=== PATIENT | female | born 1970 | race African-American/Black ===

== ENCOUNTER 2016-08-02 04:14 | Emergency (ER) | payer OTHER ==
[~2016-08-02] VITALS: Ht 160 cm; Wt 77.1 kg
[2016-08-02] MEDS ORDERED: NKM (04:25)
[2016-08-02 04:30] VITALS: BP 114/70
--- NOTE | 2016-08-02 04:30 | Emergency Room Report ---
History of Present Illness General Chief Complaint: Abdominal Pain Source: Patient Present Illness HPI 46 YO F with 2-3 days of vomiting, diarrhea and abd pain. Lap band surgery in 2010. Denies urinary complaints. Denies sick contacts, foreign travel. Not taking any OTC meds at home. Allergies: Coded Allergies: ACETAMINOPHEN (Verified Allergy, Unknown, 08/02/16) HYDROCODONE (Verified Allergy, Unknown, 08/02/16) IBUPROFEN (Verified Allergy, Unknown, 08/02/16) Uncoded Allergies: ARITHROMYACIN (Allergy, Unknown, 08/02/16) Patient History Past Surgical History: other - lab band surgery Pertinent Family History: none Social History: Denies: alcohol use, drug use, smoking Last Menstrual Period: 07/10/16 Now: No : 2 Para: 1 Reviewed Nursing Documentation: PMH: Agreed, PSxH: Agreed Review of Systems All Other Systems: negative except mentioned in HPI Physical Exam Vital Signs Date Time Temp Pulse Resp B/P Pulse Ox O2 Delivery O2 Flow Rate FiO2 08/02/16 04:20 97.9 84 14 147/88 100 Sp02 EP Interpretation: reviewed, normal General Appearance: normal inspection, well appearing, no apparent distress, alert Head: atraumatic ENT: normal ENT inspection, hearing grossly normal, normal voice Neck: normal inspection, full range of motion, supple, no bony tend Respiratory: normal inspection, lungs clear, normal breath sounds, no respiratory distress, no retraction, no wheezing Cardiovascular #1: regular rate, rhythm, no edema Gastrointestinal: normal inspection, normal bowel sounds, non tender, soft, no guarding, no hernia Genitourinary: no CVA tenderness Musculoskeletal: normal inspection, back normal, normal range of motion, Nanci' s Sign negative Neurologic: normal inspection, alert, responsive, speech normal Psychiatric: normal inspection, judgement/insight normal, mood/affect normal Skin: normal inspection, normal color, no rash Medical Decision Making ER Course 46 YOf with symptoms c/w viral gastroenteritis. VSS. Afebrile. Nonfocal abd on serial exam. UA negative for infection. Multiple epithelial cells, like contaminant. No nitrites. Patient not , had "tubes tied" before. PO tx with zofran/bentyl/pepcid. Tolerating PO in ED Low suspicion for acute bacterial or surgical process Rx with meds for symptomatic relief PMD followup DC home Last Vital Signs Date Time Temp Pulse Resp B/P Pulse Ox O2 Delivery O2 Flow Rate FiO2 08/02/16 04:20 97.9 84 14 147/88 100 Status: improved Disposition: HOME, SELF-CARE Scripts Famotidine (PEPCID) 20 Mg Tablet 20 MG ORAL BID, #30 TAB 0 Refills Prov: KOKO BRADY M.D. 08/02/16 Ondansetron Odt* (ZOFRAN ODT*) 4 Mg Tab.rapdis 4 MG ORAL Q6H Y for Nausea & Vomiting, #30 TAB 0 Refills Prov: KOKO BRADY M.D. 08/02/16 Dicyclomine Hcl* (BENTYL*) 10 Mg Capsule 10 MG ORAL FOUR TIMES A DAY for 10 Days, #40 CAP Prov: KOKO BRADY M.D. 08/02/16 KOKO BRADY M.D. Aug 02, 2016 04:30
[2016-08-02] MEDS ORDERED: BENTYL10 MG ORAL (04:37)
[2016-08-02] MEDS ORDERED: ZOFRAN ODT4 MG ORAL (04:37)
[2016-08-02] MEDS ORDERED: PEPCID20 MG ORAL (04:37)
[2016-08-02 04:39] LABS: APPEARANCE,URINE CLEAR; KETONES,URINE 1+ (NEGATIVE); LEUKOCYTE ESTERASE ,URINE 2+ (NEGATIVE); NITRITE,URINE NEGATIVE (NEGATIVE); PH,URINE 6.5 (4.5-8.0); PROTEIN,URINE 1+ (NEGATIVE); UROBILINOGEN,URINE NORMAL MG/DL (0.0-1.0)
[2016-08-02] MEDS ORDERED: Dicyclomine HCl 10mg/5ml oral soln ORAL ONE (04:45)
[2016-08-02 05:14] LABS: BACTERIA,URINE FEW /HPF; SQUAMOUS EPITHELIAL CELL,UR MANY /LPF (NONE/OCC)
[2016-08-02 05:39] VITALS: BP 120/73
== END 2016-08-02 05:39 | disposition home or self-care (01) ==
LOC: EMR 04:24
DX: A08.4 Viral intestinal infection, unspecified (principal); R10.9 Unspecified abdominal pain; R11.10 Vomiting, unspecified; R19.7 Diarrhea, unspecified; Z98.84 Bariatric surgery status; Z88.6 Allergy status to analgesic agent; Z88.5 Allergy status to narcotic agent
CPT/HCPCS: 81003; 81025; 99284

== ENCOUNTER 2016-08-02 08:04 | Inpatient (IN) | payer OTHER ==
[2016-08-02] VITALS (9 sets, daily range): BP systolic 121–135; BP diastolic 75–86
[~2016-08-02] VITALS: Ht 160 cm; Wt 77.1 kg
[2016-08-02] MEDS: Ketorolac 30mg Inj IV SCH ×4 (02:30→20:30)
[~2016-08-02 08:04] MED LIST: BENTYL10 MG ORAL; NKM; PEPCID20 MG ORAL; ZOFRAN ODT4 MG ORAL
--- NOTE | 2016-08-02 09:27 | Emergency Room Report ---
History of Present Illness General Chief Complaint: Abdominal Pain Source: Patient Present Illness HPI This patient presents with nausea, vomiting and abdominal pain. The patient states that her symptoms started 3 days ago. She states that she feels like something is wrong in her abdomen. She states that she underwent a lap band procedure 5-6 years ago. She is unsure if it was 2009 or 2010. She was seen here early this morning and diagnosed with gastroenteritis. She states that this does not seem like a gastroenteritis. She feels something is wrong in her abdomen. She has diffuse abdominal pain and cramping. She has been able to take oral fluids. She has not been able to eat any solids. She denies fever or chills. She denies bodyaches. She denies dysuria or hematuria. She has no other complaints. Allergies: Coded Allergies: ACETAMINOPHEN (Verified Allergy, Unknown, 08/02/16) HYDROCODONE (Verified Allergy, Unknown, 08/02/16) IBUPROFEN (Verified Allergy, Unknown, 08/02/16) Uncoded Allergies: ARITHROMYACIN (Allergy, Unknown, 08/02/16) Patient History Past Medical History: none, see triage record Past Surgical History: other - Gastric bypass/lap band 2010 Social History: Denies: alcohol use, drug use, smoking Last Menstrual Period: 07/10/2016 Reviewed Nursing Documentation: PMH: Agreed, PSxH: Agreed Nursing Documentation-PMH Past Medical History: No History, Except For Review of Systems All Other Systems: negative except mentioned in HPI Physical Exam Vital Signs Date Time Temp Pulse Resp B/P Pulse Ox O2 Delivery O2 Flow Rate FiO2 08/02/16 08:12 97.9 99 14 144/77 98 Room Air Sp02 EP Interpretation: reviewed, normal General Appearance: no apparent distress, alert, GCS 15, non-toxic Head: normocephalic, atraumatic Eyes: bilateral eye PERRL, bilateral eye normal inspection ENT: hearing grossly normal, normal pharynx, no angioedema, normal voice Neck: full range of motion, supple/symm/no masses Respiratory: chest non-tender, lungs clear, normal breath sounds, speaking full sentences Cardiovascular #1: regular rate, rhythm, no edema Gastrointestinal: normal bowel sounds, soft, non-distended, no guarding, no rebound, tenderness - diffusely Rectal: deferred Musculoskeletal: back normal, gait/station normal, normal range of motion, non- tender Neurologic: alert, oriented x3, responsive, motor strength/tone normal, sensory intact, speech normal Psychiatric: judgement/insight normal, memory normal, mood/affect normal, no suicidal/homicidal ideation Skin: normal color, no rash, warm/dry, well hydrated Medical Decision Making Diagnostic Impression: Primary Impression: LAP-BAND Displacement ER Course This patient presents with her second visit within 12 hours for the same symptoms. She is concerned about her lap band surgery. Abdominal exam is diffusely tender. She is high-risk for complications related to a previous lap band. She is very concerned that her symptoms feel different than a gastroenteritis. Therefore, I felt I should investigate it further with labs to include a CBC and CMP. I also felt I should obtain a CT abdomen and pelvis to further assess her surgical site. This workup showed some inflammatory changes around the lap band. Further discussion with the patient's manager strategy & account/surgeon determine that this patient was found to have a slipped lap band about 10 months ago. There was plans to remove the lap band at that time, however, do to circumstances the lap was not removed. The patient does continue to have vomiting and is unable to tolerate solid food. Laboratory workup is benign. The patient is admitted for lap band removal by gastroenterology. Labs Test 08/02/16 09:10 08/02/16 10:20 White Blood Count 6.7 K/UL (4.8-10.8) Red Blood Count 4.20 M/UL (4.20-5.40) Hemoglobin 12.1 G/DL (12.0-16.0) Hematocrit 38.6 % (37.0-47.0) Mean Corpuscular Volume 92 FL (80-99) Mean Corpuscular Hemoglobin 28.7 PG (27.0-31.0) Mean Corpuscular Hemoglobin Concent 31.2 G/DL (32.0-36.0) Red Cell Distribution Width 14.2 % (11.6-14.8) Platelet Count 298 K/UL (150-450) Mean Platelet Volume 6.0 FL (6.5-10.1) Neutrophils (%) (Auto) 61.6 % (45.0-75.0) Lymphocytes (%) (Auto) 30.9 % (20.0-45.0) Monocytes (%) (Auto) 5.6 % (1.0-10.0) Eosinophils (%) (Auto) 0.5 % (0.0-3.0) Basophils (%) (Auto) 1.4 % (0.0-2.0) Sodium Level 137 mEQ/L (135-145) Potassium Level 4.1 mEQ/L (3.4-4.9) Chloride Level 102 mEQ/L (98-107) Carbon Dioxide Level 22 mEQ/L (20-30) Anion Gap 13 (5-15) Blood Urea Nitrogen 10 mg/dL (7-23) Creatinine 0.7 mg/dL (0.5-0.9) Estimat Glomerular Filtration Rate > 60 mL/min (>60) Glucose Level 99 mg/dL (74-106) Calcium Level 8.9 mg/dL (8.6-10.2) Total Bilirubin 0.5 mg/dL (0.0-1.2) Aspartate Amino Transf (AST/SGOT) 16 U/L (5-40) Alanine Aminotransferase (ALT/SGPT) 9 U/L (3-33) Alkaline Phosphatase 46 U/L (35-104) Total Protein 7.4 g/dL (6.6-8.7) Albumin 3.9 g/dL (3.5-5.2) Globulin 3.5 g/dL Albumin/Globulin Ratio 1.1 (1.0-2.7) Lipase 15 U/L (< 60) Urine Color Pale yellow Urine Appearance Clear Urine pH 8 (4.5-8.0) Urine Specific [place] 1.010 (1.005-1.035) Urine Protein Negative (NEGATIVE) Urine Glucose (UA) Negative (NEGATIVE) Urine Ketones 2+ (NEGATIVE) Urine Occult Blood Negative (NEGATIVE) Urine Nitrite Negative (NEGATIVE) Urine Bilirubin Negative (NEGATIVE) Urine Urobilinogen Normal MG/DL (0.0-1.0) Urine Leukocyte Esterase Negative (NEGATIVE) Urine HCG, Qualitative Negative CT/MRI/US Diagnostic Results CT/MRI/US Diagnostic Results : Imaging Test Ordered: CT abd/pelvis Impression See official report. Mild mural thickening of panel hernia above and proximal stomach encircled by the lap band. Last Vital Signs Date Time Temp Pulse Resp B/P Pulse Ox O2 Delivery O2 Flow Rate FiO2 08/02/16 09:11 97.9 90 14 130/85 98 Room Air Disposition: ADMITTED INPATIENT Condition: Stable Referrals: NON PHYSICIAN (PCP) MARLIN CANTU D.O. Aug 02, 2016 09:27
[2016-08-02 09:30] LABS: BASOPHILS % (AUTO) 1.4 % (0.0-2.0); EOSINOPHILS % (AUTO) 0.5 % (0.0-3.0); LYMPHOCYTES % (AUTO) 30.9 % (20.0-45.0); MEAN CORPUSCULAR HEMOGLOBIN 28.7 PG (27.0-31.0); MEAN CORPUSCULAR HGB CONC 31.2 G/DL (32.0-36.0); MEAN CORPUSCULAR VOLUME 92 FL (80-99); MONOCYTES % (AUTO) 5.6 % (1.0-10.0); NEUTROPHILS % (AUTO) 61.6 % (45.0-75.0); PLATELET COUNT 298 K/UL (150-450); RED CELL DISTRIBUTION WIDTH 14.2 % (11.6-14.8); WHITE BLOOD COUNT 6.7 K/UL (4.8-10.8)
[2016-08-02 09:43] LABS: ALANINE AMINOTRANSFERASE 9 U/L (3-33); ALBUMIN/GLOBULIN RATIO 1.1 (1.0-2.7); ANION GAP 13 (5-15); ASPARTATE AMINO TRANSFERASE 16 U/L (5-40); CALCIUM 8.9 mg/dL (8.6-10.2); CARBON DIOXIDE 22 mEQ/L (20-30); CHLORIDE 102 mEQ/L (98-107); CREATININE 0.7 mg/dL (0.5-0.9); GLOMERULAR FILTRATION RATE > 60 mL/min (>60); HEMOLYSIS 15; LIPASE 15 U/L (< 60); POTASSIUM 4.1 mEQ/L (3.4-4.9); SODIUM 137 mEQ/L (135-145); TOTAL PROTEIN 7.4 g/dL (6.6-8.7)
[2016-08-02 10:38] LABS: APPEARANCE,URINE CLEAR; KETONES,URINE 2+ (NEGATIVE); LEUKOCYTE ESTERASE ,URINE NEGATIVE (NEGATIVE); NITRITE,URINE NEGATIVE (NEGATIVE); PH,URINE 8 (4.5-8.0); PROTEIN,URINE NEGATIVE (NEGATIVE); UROBILINOGEN,URINE NORMAL MG/DL (0.0-1.0)
[2016-08-02] MEDS ORDERED: Ropivacaine 5mg/ml Vial 20ml INJ ONE (14:23)
[2016-08-02] MEDS ORDERED: cefOXitin 1gm Inj ONE (14:24)
[2016-08-02] MEDS ORDERED: cefOXitin 2gm Inj ONE (14:24)
[2016-08-02] MEDS ORDERED: Propofol 10mg/ml 20ml IV ONE ×2 (14:25→14:59)
[2016-08-02] MEDS ORDERED: Midazolam 2mg/2ml Inj ONE (14:59)
[2016-08-02] MEDS ORDERED: fentaNYL 100 mcg/2 mL IV ONE (14:59)
[2016-08-02] MEDS ORDERED: Morphine Sulfate 2mg/ml Inj ONE (14:59)
[2016-08-02] MEDS ORDERED: Glycopyrrolate 0.2mg/ml 1ml Vial ONE (14:59)
[2016-08-02] MEDS ORDERED: Succinylcholine 20mg/ml 10ml vial ONE (14:59)
[2016-08-02] MEDS ORDERED: Morphine Sulfate 10mg/ml Inj ONE (14:59)
[2016-08-02] MEDS ORDERED: Neostigmine 1mg/ml 10ml Inj ONE (14:59)
[2016-08-02] MEDS ORDERED: Zemuron 50mg/5ml Inj IV ONE (14:59)
--- NOTE | 2016-08-02 15:48 | Anethesia Preoperative Eval ---
Anesthesia Pre-op PMH/ROS General Date of Evaluation: Aug 02, 2016 Time of Evaluation: 15:43 Anesthesiologist: Isaura ASA Score: ASA 2 Mallampati Score Class I : Soft palate, uvula, fauces, pillars visible Class II: Soft palate, uvula, fauces visible Class III: Soft palate, base of uvula visible Class IV: Only hard plate visible Mallampati Classification: Class II Surgeon: Rajwinder Diagnosis: Displaced lapband. Surgical Procedure: Laparoscopic removal of lapband, partial gastrectomy. Anesthesia History: PONV Family History: no anesthesia problems Allergies: Coded Allergies: ACETAMINOPHEN (Verified Allergy, Unknown, 08/02/16) HYDROCODONE (Verified Allergy, Unknown, 08/02/16) IBUPROFEN (Verified Allergy, Unknown, 08/02/16) Uncoded Allergies: ARITHROMYACIN (Allergy, Unknown, 08/02/16) Past Medical History Cardiovascular: Denies: CAD, HTN, [place], arrhythmia, other, valve dz Pulmonary: Denies: COPD, JULIANE, asthma, other Gastrointestinal/Genitourinary: Reports: GERD, Denies: CRI, ESRD, other Neurologic/Psychiatric: Reports: depression/anxiety, Denies: CVA, TIA, dementia, other Endocrine: Denies: DM, hypothyroidism, other, steroids HEENT: Denies: NOATAK (L), NOATAK (R), cataract (L), cataract (R), glaucoma, other Hematology/Immune: Denies: DVT, anemia, bleeding disorder, other Musculoskeletal/Integumentary: Reports: DJD, Denies: DDD, OA, RA, edema, other Other: obesity - s/p lapband placement PMH Narrative: admitted for acute abdominal pain. N&V. PSxH Narrative: BTL, Lapband placement, R TKA Anesthesia Pre-op Phys. Exam Physician Exam Last Vital Signs Date Time Temp Pulse Resp B/P Pulse Ox O2 Delivery O2 Flow Rate FiO2 08/02/16 15:33 97.9 88 14 135/86 97 Room Air Constitutional: NAD Neurologic: CN 2-12 intact Cardiovascular: RRR, no M/R/G Respiratory: CTA Gastrointestinal: S/NT/ND Airway Exam Mallampati Score: Class II MO: full Neck: flexible ROM: full Teeth: intact Dentures: no lower, no upper Anesthesia Pre-op A/P Labs Hematology Test 08/02/16 09:10 White Blood Count 6.7 K/UL (4.8-10.8) Red Blood Count 4.20 M/UL (4.20-5.40) Hemoglobin 12.1 G/DL (12.0-16.0) Hematocrit 38.6 % (37.0-47.0) Mean Corpuscular Volume 92 FL (80-99) Mean Corpuscular Hemoglobin 28.7 PG (27.0-31.0) Mean Corpuscular Hemoglobin Concent 31.2 G/DL (32.0-36.0) L Red Cell Distribution Width 14.2 % (11.6-14.8) Platelet Count 298 K/UL (150-450) Mean Platelet Volume 6.0 FL (6.5-10.1) L Neutrophils (%) (Auto) 61.6 % (45.0-75.0) Lymphocytes (%) (Auto) 30.9 % (20.0-45.0) Monocytes (%) (Auto) 5.6 % (1.0-10.0) Eosinophils (%) (Auto) 0.5 % (0.0-3.0) Basophils (%) (Auto) 1.4 % (0.0-2.0) Chemistry Test 08/02/16 09:10 Sodium Level 137 mEQ/L (135-145) Potassium Level 4.1 mEQ/L (3.4-4.9) Chloride Level 102 mEQ/L (98-107) Carbon Dioxide Level 22 mEQ/L (20-30) Anion Gap 13 (5-15) Blood Urea Nitrogen 10 mg/dL (7-23) Creatinine 0.7 mg/dL (0.5-0.9) Estimat Glomerular Filtration Rate > 60 mL/min (>60) Glucose Level 99 mg/dL (74-106) Calcium Level 8.9 mg/dL (8.6-10.2) Total Bilirubin 0.5 mg/dL (0.0-1.2) Aspartate Amino Transf (AST/SGOT) 16 U/L (5-40) Alanine Aminotransferase (ALT/SGPT) 9 U/L (3-33) Alkaline Phosphatase 46 U/L (35-104) Total Protein 7.4 g/dL (6.6-8.7) Albumin 3.9 g/dL (3.5-5.2) Globulin 3.5 g/dL Albumin/Globulin Ratio 1.1 (1.0-2.7) Lipase 15 U/L (< 60) Urine Test Test 08/02/16 10:20 Urine HCG, Qualitative Negative Studies Pre-op Studies: EKG - NSR Risk Assessment & Plan Assessment: ASA 2 Plan: GA with ETT Status Change Before Surgery: No Pre-Antibiotics Drug: Ancef `1 gr. Given Within 1 Hr of Incision: Yes Time Given: 16:12 PABLO MAX M.D. Aug 02, 2016 15:48
--- NOTE | 2016-08-02 16:35 | Pre-Procedure Note/Attestation ---
Pre-Procedure Note/Attestation Complete Prior to Procedure Planned Procedure: not applicable Procedure Narrative: Diagnostic laparoscopy, removal of lap band, possible partial gastrectomy, intraoperative endoscopy, transversus abdominis plane block, possible hiatal hernia repair Indications for Procedure Pre-Operative Diagnosis: Slipped lap band Attestation I attest that I discussed the nature of the procedure; its benefits; risks and complications; and alternatives (and the risks and benefits of such alternatives ), prior to the procedure, with the patient (or the patient's legal client services representative). I attest that, if there was a reasonable possibility of needing a blood transfusion, the patient (or the patient's legal client services representative) was given the [place] [employer] standardized written summary, pursuant to the Alex Teodoro Blood Safety Act ([place] Health and Safety Code # 1645, as amended). I attest that I re-evaluated the patient just prior to the surgery and that there has been no change in the patient's H&P, except as documented below: Juan C MCLAUGHLIN M.D. Aug 02, 2016 16:35
--- NOTE | 2016-08-02 16:50 | Consultation ---
History of Present Illness General Chief Complaint: Abdominal Pain Present Illness HPI Patient presented to ER with inability to tolerate PO as well as discomfort when trying to eat or drink. She has a known slipped lap band. Allergies: Coded Allergies: ACETAMINOPHEN (Verified Allergy, Unknown, 08/02/16) HYDROCODONE (Verified Allergy, Unknown, 08/02/16) IBUPROFEN (Verified Allergy, Unknown, 08/02/16) Uncoded Allergies: ARITHROMYACIN (Allergy, Unknown, 08/02/16) Medication History Scheduled Dicyclomine Hcl* (Bentyl*), 10 MG ORAL FOUR TIMES A DAY Famotidine (Pepcid), 20 MG ORAL BID No Known Medications* (NKM - No Known Medications*), 0 ., (Reported) Scheduled PRN Ondansetron Odt* (Zofran Odt*), 4 MG ORAL Q6H PRN for Nausea & Vomiting Patient History History Provided By: Patient Healthcare decision maker Resuscitation status Advanced Directive on File Past Medical/Surgical History Past Medical/Surgical History: (1) Gastric outlet obstruction Review of Systems Constitutional: Denies: chills, fever, malaise, no symptoms, other, see HPI, sweats, weakness Eye: Denies: acuity changes, blurred vision, discharge, double vision, eye pain , no symptoms, nose congestion, nose pain, other, see HPI, tearing ENT: Denies: ear discharge, ear pain, hearing loss, mouth pain, nasal discharge , no symptoms, nose congestion, nose pain, other, see HPI, throat pain, throat swelling Respiratory: Denies: WALTER, cough, no symptoms, orthopnea, other, see HPI, shortness of breath, sputum, stridor, wheezing Cardiovascular: Denies: PND, chest pain, edema, no symptoms, other, palpitations, see HPI, syncope Gastrointestinal: Reports: abdominal pain, constipation, diarrhea, hematemesis , melena, nausea, no symptoms, other, see HPI, vomiting Genitourinary: Denies: discharge, dysuria, frequency, hematuria, incontinence, no symptoms, other, pain, retention, see HPI, urgency, vag bleed/dc Musculoskeletal: Denies: back pain, gout, joint pain, joint swelling, muscle pain, muscle stiffness, no symptoms, other, see HPI Skin: Denies: change in color, change in hair/nails, dryness, lesions, no symptoms, other, rash, see HPI Psychiatric: Denies: HI, SI, anxiety, depressed feelings, emotional problems, hallucinations, no symptoms, other, prior hx, see HPI Neurological: Denies: dizziness, focal weakness, headache, no symptoms, numbness, other, paresthesia, see HPI, seizure, syncope, tingling, tremors Endocrine: Denies: excessive sweating, flushing, increased thirst, increased urine, intolerance to temperature, no symptoms, other, see HPI, unexplained weight loss Hematologic/Lymphatic: Denies: anemia, blood clots, diathesis, easy bleeding, easy bruising, no symptoms, other, see HPI, swollen glands Physical Exam General Appearance: no apparent distress HEENT: normocephalic, atraumatic Respiratory/Chest: chest wall non-tender, lungs clear Cardiovascular/Chest: normal peripheral pulses, normal rate Abdomen: other - mild epigastric tenderness, no diffuse tenderness Extremities: normal range of motion Skin Exam: normal pigmentation Last 24 Hour Vital Signs Date Time Temp Pulse Resp B/P Pulse Ox O2 Delivery O2 Flow Rate FiO2 08/02/16 15:33 97.9 88 14 135/86 97 Room Air 08/02/16 13:08 97.9 88 14 135/86 97 Room Air 08/02/16 09:11 97.9 90 14 130/85 98 Room Air 08/02/16 08:12 97.9 99 14 144/77 98 Room Air Laboratory Tests Test 08/02/16 09:10 08/02/16 10:20 White Blood Count 6.7 K/UL (4.8-10.8) Red Blood Count 4.20 M/UL (4.20-5.40) Hemoglobin 12.1 G/DL (12.0-16.0) Hematocrit 38.6 % (37.0-47.0) Mean Corpuscular Volume 92 FL (80-99) Mean Corpuscular Hemoglobin 28.7 PG (27.0-31.0) Mean Corpuscular Hemoglobin Concent 31.2 G/DL (32.0-36.0) L Red Cell Distribution Width 14.2 % (11.6-14.8) Platelet Count 298 K/UL (150-450) Mean Platelet Volume 6.0 FL (6.5-10.1) L Neutrophils (%) (Auto) 61.6 % (45.0-75.0) Lymphocytes (%) (Auto) 30.9 % (20.0-45.0) Monocytes (%) (Auto) 5.6 % (1.0-10.0) Eosinophils (%) (Auto) 0.5 % (0.0-3.0) Basophils (%) (Auto) 1.4 % (0.0-2.0) Sodium Level 137 mEQ/L (135-145) Potassium Level 4.1 mEQ/L (3.4-4.9) Chloride Level 102 mEQ/L (98-107) Carbon Dioxide Level 22 mEQ/L (20-30) Anion Gap 13 (5-15) Blood Urea Nitrogen 10 mg/dL (7-23) Creatinine 0.7 mg/dL (0.5-0.9) Estimat Glomerular Filtration Rate > 60 mL/min (>60) Glucose Level 99 mg/dL (74-106) Calcium Level 8.9 mg/dL (8.6-10.2) Total Bilirubin 0.5 mg/dL (0.0-1.2) Aspartate Amino Transf (AST/SGOT) 16 U/L (5-40) Alanine Aminotransferase (ALT/SGPT) 9 U/L (3-33) Alkaline Phosphatase 46 U/L (35-104) Total Protein 7.4 g/dL (6.6-8.7) Albumin 3.9 g/dL (3.5-5.2) Globulin 3.5 g/dL Albumin/Globulin Ratio 1.1 (1.0-2.7) Lipase 15 U/L (< 60) Urine Color Pale yellow Urine Appearance Clear Urine pH 8 (4.5-8.0) Urine Specific [place] 1.010 (1.005-1.035) Urine Protein Negative (NEGATIVE) Urine Glucose (UA) Negative (NEGATIVE) Urine Ketones 2+ (NEGATIVE) H Urine Occult Blood Negative (NEGATIVE) Urine Nitrite Negative (NEGATIVE) Urine Bilirubin Negative (NEGATIVE) Urine Urobilinogen Normal MG/DL (0.0-1.0) Urine Leukocyte Esterase Negative (NEGATIVE) Urine HCG, Qualitative Negative Height (Feet): 5 Height (Inches): 3.00 Weight (Pounds): 170 Assessment/Plan Problem List: (1) Gastric outlet obstruction ICD Codes: K31.1 - Adult hypertrophic pyloric stenosis SNOMED: [id number] Assessment/Plan Patient presented to the ER with inability to tolerate diet for several days. She has a known slipped lap band based on endoscopy in the past. Her symptoms have mainly been heartburn but has had increased difficulty eating and drinking. Also has pain in epigastrum when swallowing. I suspect her symptoms are related to her slipped band. She has been admitted for IV hydration. I think the safest treatment is to perform a diagnostic laparoscopy with plan for removal of lap band. She understands we may need to perform partial gastrectomy depending on viability of the stomach. If a hiatal hernia is obvious, we may also repair that at this time. We may also perform endoscopy as well as transversus abdominis plane block. She understands the risks of bleeding, infection, leak, stricture, deep vein thrombosis, pulmonary embolism, mesenteric vessel thrombosis, and even . However, leaving the slipped band in place which is likely causing and obstruction is much higher in risk for malnutrition, erosion, and sepsis. Patient understands and agrees to proceed. Juan C MCLAUGHLIN M.D. Aug 02, 2016 16:50
[2016-08-02] MEDS ORDERED: NS Irrig 1000ml IRRIG ONE (18:14)
[2016-08-02] MEDS ORDERED: Heparin 5000 units/ml inj ONE (18:17)
[2016-08-02] MEDS ORDERED: LR 1000ml 1,000 ML IVLG SCH (19:00)
[2016-08-02] MEDS ORDERED: DiphenhydrAMINE 50mg/ml Inj IVP PRN (19:00)
[2016-08-02] MEDS ORDERED: Metoclopramide 10mg/2ml Inj IVP PRN (19:00)
[2016-08-02] MEDS ORDERED: Midazolam 2mg/2ml Inj IVP PRN (19:00)
[2016-08-02] MEDS ORDERED: fentaNYL 100 mcg/2 mL IV PRN (19:00)
[2016-08-02] MEDS ORDERED: Hydromorphone 0.5mg/0.5ml inj IVP PRN (19:00)
[2016-08-02] MEDS ORDERED: Bupivacaine w/Epi 0.5% 30ml Vial INJ ONE (20:03)
--- NOTE | 2016-08-02 21:33 | Immediate Post-Op Evaluation ---
Immediate Post-Op Evalulation Immediate Post-Op Evalulation Procedure: Laparoscopic removal of lapband, partial gastreectomy Date of Evaluation: Aug 02, 2016 Time of Evaluation: 21:32 IV Fluids: 1500 Blood Products: none Estimated Blood Loss: 100 Urinary Output: 150 Blood Pressure Systolic: 127 Blood Pressure Diastolic: 78 Pulse Rate: 86 Respiratory Rate: 22 O2 Sat by Pulse Oximetry: 99 Temperature (Fahrenheit): 97.6 Pain Score (1-10): 1 Nausea: No Vomiting: No Complications none Patient Status: reacts, patent, extubated, none Hydration Status: adequate PABLO MAX M.D. Aug 02, 2016 21:33
--- NOTE | 2016-08-02 22:08 | History and Physical Report ---
DATE OF ADMISSION: 08/02/2016 CHIEF COMPLAINT: Abdominal pain, nausea, and vomiting. HISTORY OF PRESENT ILLNESS: The patient is a pleasant 46-year-old female with past medical history of obesity, who underwent laparoscopic adjustable gastric band placement in 2009. The patient presents with symptoms of nausea, vomiting, and abdominal pain. The patient had similar symptoms on a milder basis about a year ago. She underwent an upper endoscopy and was noted to have slippage of her lap band. She has had regurgitation, reflux, and intermittent emesis on a chronic basis. However over the past day, she has had worsening nausea, vomiting, and inability to tolerate any oral intake. She has been having abdominal pain and presents to the emergency room. The patient has not had any fevers or chills. PAST MEDICAL HISTORY: None. PAST SURGICAL HISTORY: 1. Laparoscopic, adjustable gastric band placement in 2010. 2. Right total knee replacement. 3. Tubal ligation. ALLERGIES: Acetaminophen, ibuprofen, and hydrocodone. SOCIAL HISTORY: No history of tobacco use. The patient is using alcoholic beverages of about two to three drinks per week. FAMILY HISTORY: Noncontributory. REVIEW OF SYSTEMS: General: No fevers or chills. No changes in weight. Neurological: No headache or blurred vision. No focal weakness. Cardiac: No chest pain, chest pressure, or palpitation. NO DYSPNEA ON EXERTION AND NO ORTHOPNEA OR PAROXYSMAL NOCTURNAL DYSPNEA. RESPIRATORY: No shortness of breath or visible cough. Gastrointestinal: As noted above. Musculoskeletal: No joint or muscle pain. Endocrine: No heat or cold intolerance. Genitourinary: No dysuria or hematuria. Hematological: No anemia or easy bruising. Psychiatric: No depression or anxiety. HEENT: Negative and unremarkable. PHYSICAL EXAMINATION: VITAL SIGNS: Temperature is 97.9 degrees, blood pressure 135/86, pulse 88, respiration 14, and saturation 97%. GENERAL: This is a pleasant female, in no acute distress. HEENT: Eyes, pupils are equally round and reactive to light and accommodation. Extraocular motions are intact. Sclerae are anicteric. Conjunctivae are not injected. NECK: Supple without lymphadenopathy. LUNGS: Clear to auscultation. No wheeze, rales, or rhonchi. HEART: Regular rate and rhythm. No murmur, rubs or gallops. ABDOMEN: Soft. Slight epigastric tenderness is noted. Remainder of abdomen is unremarkable. Abdomen is nondistended. Bowel sounds are present. Normoactive. EXTREMITIES: Without any edema, cyanosis, or clubbing. SKIN: Unremarkable. LABORATORY EXAMINATION: White count is 6.7, hemoglobin 12.1, hematocrit 38.6, and platelet count 298,000. Sodium is 137, potassium 4.1, chloride 102, carbon dioxide 22, BUN 10, and creatinine 0.7. LFTs are unremarkable. DIAGNOSTIC DATA: Electrocardiogram is pending. ASSESSMENT AND PLAN: This is a pleasant 46-year-old female with history of lap band procedure, who has been known slippage of the band. She presents with abdominal pain, worsening of her usual symptoms to the point that now she is unable to tolerate oral intake. She additionally has abdominal pain. CT scan of the abdomen shows some thickening in the area of the lap band. The patient has been seen and evaluated by Surgery and worsening slippage of the band is felt to be a reason for her symptoms. The patient is being taken to the operating room emergently for removal of the lap band. The patient denies any prior cardiac or respiratory diagnoses. She has no cardiac or respiratory symptoms. She walks 30 minutes per day, which she estimates to be about one mile. She does so at least five days per week. She denies any symptoms and has agreed to general activity tolerance. The patient's electrocardiogram is pending. The patient is cleared for current surgery. The patient is cleared for current surgery pending the results of her echocardiogram. She is at low risk. The patient is undergoing low risk procedure. The patient will be admitted postoperatively for pain control and intravenous hydration and for recovery. I have had a chance to discuss the patient with Dr. Aldana . I have also discussed the patient with ER attending and nursing staff. Lam Cruz M.D. DR: Silvana JOB#: [id number] CC:
[2016-08-03] VITALS: BP 108/78
[2016-08-03] MEDS: D5 1/2NS w/KCl 20mEq 1,000 ML IV SCH ×3 (01:44→11:47)
[2016-08-03] MEDS: Ketorolac 30mg Inj IV SCH ×4 (01:50→20:43)
[2016-08-03 04:00] VITALS: BP 112/70
[2016-08-03 06:48] LABS: MEAN CORPUSCULAR HEMOGLOBIN 27.9 PG (27.0-31.0); MEAN CORPUSCULAR HGB CONC 30.5 G/DL (32.0-36.0); MEAN CORPUSCULAR VOLUME 92 FL (80-99); PLATELET COUNT 247 K/UL (150-450); RED BLOOD COUNT 3.58 M/UL (4.20-5.40); RED CELL DISTRIBUTION WIDTH 14.3 % (11.6-14.8); WHITE BLOOD COUNT 14.2 K/UL (4.8-10.8)
[2016-08-03 06:51] LABS: ANION GAP 10 (5-15); CARBON DIOXIDE 23 mEQ/L (20-30); CHLORIDE 105 mEQ/L (98-107); CREATININE 0.7 mg/dL (0.5-0.9); GLOMERULAR FILTRATION RATE > 60 mL/min (>60); HEMOLYSIS 2; POTASSIUM 5.2 mEQ/L (3.4-4.9); SODIUM 138 mEQ/L (135-145)
[2016-08-03 08:00] VITALS: BP 124/79
[2016-08-03] MEDS: Famotidine 20 MG/ 2ML VIAL IVP SCH ×2 (08:58→20:42)
[2016-08-03] MEDS: Heparin 5000 units/ml inj SUBQ SCH ×2 (09:00→20:43)
[2016-08-03] MEDS: HYDROmorphone 1mg/ml Carpuject IVP PRN (09:12)
[2016-08-03 11:57] LABS: BAND NEUTROPHILS % (MANUAL) 0 % (0-8); BASOPHILS % (MANUAL) 0 % (0-2); EOSINOPHILS % (MANUAL) 0 % (0-3); LYMPHOCYTES % (MANUAL) 6 % (20-45); NEUTROPHILS % (MANUAL) 90 % (45-75); PLATELET ESTIMATE ADEQUATE; PLATELET MORPHOLOGY NORMAL; TOTAL CELLS COUNTED 100
[2016-08-03] MEDS: D5 1/2NS 1,000 ML IV SCH ×2 (13:22→19:55)
[2016-08-03 16:00] VITALS: BP 108/64
--- NOTE | 2016-08-03 16:54 | Diagnostic Imaging Report ---
Indication: POST-OP lap band removal Technique: Patient ingested water-soluble contrast. Rapid sequence and static photospot images were obtained Fluoroscopy time 2.3 minutes. Dose area product 182 dGycm2 Comparison: Reference made to CT scan 08/02/2016 Findings: Clinical Engineer film demonstrates contrast within small bowel and colon from prior CT scan After ingestion of contrast, contrast anxiety in the distal esophagus. A few drops, well less than 1 mL, of contrast was seen to end of the stomach, but obstruction at the level of distal esophagus is essentially complete. No definite leakage demonstrated. Tertiary contractions and esophageal dilatation are noted. Impression: Essentially complete obstruction of the distal esophagus, status post lap band removal. Nonspecific as regards etiology, presumably due to soft tissue edema. Findings were previously discussed by phone with the referring surgeon
[2016-08-03] MEDS ORDERED: D5 1/2NS 1000ml IV ONE (18:25)
[2016-08-03 20:00] VITALS: BP 117/70
--- NOTE | 2016-08-03 21:28 | Discharge Summary ---
DATE OF ADMISSION: 08/02/2016 HOSPITAL COURSE: This is a pleasant 46-year-old female, who presents to the emergency room with intractable nausea, vomiting, abdominal pain, and able to tolerate oral intake. The patient is noted to have slippage of the band. The patient is taken to the operating room urgently last night. She underwent removal of the lap-band and repair of the site. This morning, she had an upper GI study. Results are currently pending. She tolerated the contrast well. She has been tolerating ice chips and sips of liquid. The patient's pain is well controlled. She has not had any nausea or vomiting. PHYSICAL EXAMINATION: VITAL SIGNS: Temperature is 98.2 degrees, blood pressure 124/70, pulse 65, respirations 20, and saturation 98%. GENERAL: She is a pleasant female who is currently comfortable. She is alert and oriented. HEENT: Eyes, PERRLA. Extraocular motion is intact. Sclerae anicteric. NECK: Supple without lymphadenopathy. LUNGS: Clear to auscultation. No wheeze, rales, or rhonchi. HEART: Regular rate and rhythm. No murmur, rubs, or gallops. ABDOMEN: Soft. There is mild appropriate tenderness in the upper abdomen. Abdomen is nondistended. EXTREMITIES: No cyanosis, clubbing, or edema. ASSESSMENT AND PLAN: This is a pleasant 46-year-old female with history of lap-band procedure who presents with abdominal pain, nausea and vomiting. She has noted to have slippage of the band. The patient had an emergent laparoscopy and removal of the lap band. PLAN: The patient will be started on clear liquid diet at 4 to 6 ounces/hour. Pain is well controlled and antiemetics as needed. Once the patient tolerated 4 to 6 ounces of clear liquids, she will be discharged home likely this evening. The patient is to follow with Dr. Jovan Bergman next week. Her activity will be ad-linda, but no heavy lifting. The patient is to start milkshakes tomorrow. I had a chance discuss the coordination of care with the emergency room physician as well as with Dr. Jovan Bergman. Lam Cruz M.D. DR: GIUSEPPE JOB#: [id number] CC:
[2016-08-04] VITALS: BP 121/78
[2016-08-04] MEDS: D5 1/2NS 1,000 ML IV SCH ×3 (02:51→19:19)
[2016-08-04 04:00] VITALS: BP 114/74
[2016-08-04 07:08] LABS: MEAN CORPUSCULAR HEMOGLOBIN 29.1 PG (27.0-31.0); MEAN CORPUSCULAR HGB CONC 33.4 G/DL (32.0-36.0); MEAN CORPUSCULAR VOLUME 87 FL (80-99); MEAN PLATELET VOLUME 6.8 FL (6.5-10.1); PLATELET COUNT 228 K/UL (150-450); RED BLOOD COUNT 3.36 M/UL (4.20-5.40); RED CELL DISTRIBUTION WIDTH 14.8 % (11.6-14.8); WHITE BLOOD COUNT 8.9 K/UL (4.8-10.8)
[2016-08-04 07:21] LABS: ANION GAP 11 (5-15); CALCIUM 7.9 mg/dL (8.6-10.2); CARBON DIOXIDE 24 mEQ/L (20-30); CHLORIDE 105 mEQ/L (98-107); CREATININE 0.6 mg/dL (0.5-0.9); GLOMERULAR FILTRATION RATE > 60 mL/min (>60); HEMOLYSIS 3; SODIUM 140 mEQ/L (135-145)
[2016-08-04 08:00] VITALS: BP 135/79
[2016-08-04] MEDS: Heparin 5000 units/ml inj SUBQ SCH ×2 (09:03→22:03)
[2016-08-04] MEDS: Famotidine 20 MG/ 2ML VIAL IVP SCH ×2 (09:03→22:00)
[2016-08-04 09:46] LABS: ANISOCYTOSIS 1+; BAND NEUTROPHILS % (MANUAL) 0 % (0-8); BASOPHILS % (MANUAL) 0 % (0-2); EOSINOPHILS % (MANUAL) 0 % (0-3); LYMPHOCYTES % (MANUAL) 19 % (20-45); NEUTROPHILS % (MANUAL) 75 % (45-75); PLATELET ESTIMATE ADEQUATE; PLATELET MORPHOLOGY NORMAL; TOTAL CELLS COUNTED 100
[2016-08-04 12:00] VITALS: BP 127/83
[2016-08-04 16:00] VITALS: BP 134/87
[2016-08-04] MEDS ORDERED: D5 1/2NS 1000ml IV ONE (17:52)
[2016-08-04] MEDS: HYDROmorphone 1mg/ml Carpuject IVP PRN (18:13)
[2016-08-04 20:00] VITALS: BP 136/85
[2016-08-05] VITALS: BP 119/71
--- NOTE | 2016-08-05 00:18 | Progress Note ---
DATE: 08/04/2015 INTERVAL HISTORY: This is a 45-year-old female, who presents with a slippage of lap band and is taken to the operating room emergently. She is on postoperative day #2. She is doing better today and has started to take clear liquids. She is taking about 2 ounces per hour. Over the past 8 to 10 hours, she has drank about 15 to 20 ounces. It is still difficult for her to fully take clears. She has not had any emesis. Her pain is minimal. PHYSICAL EXAMINATION: VITAL SIGNS: Temperature is 97.9, blood pressure is 134/87, pulse 72, respirations 20, and saturation is 100% on room air. GENERAL: This is a pleasant female, in no acute distress. HEENT: Eyes, PERRLA. Extraocular motion is intact. Sclerae anicteric. Conjunctivae not injected. NECK: Supple without lymphadenopathy. LUNGS: Clear to auscultation. No wheezes, rales, or rhonchi. HEART: Regular rate and rhythm. No murmur, rubs or gallops. ABDOMEN: Soft. Slight epigastric tenderness. The remainder of the abdomen is nontender and nondistended. Bowel sounds are present and normoactive. EXTREMITIES: Without any edema, cyanosis, or clubbing. ASSESSMENT: 1. Abdominal pain, intractable nausea and vomiting. 2. Slippage of the lap band. 3. Status post laparoscopy and removal of the lap band. 4. Dysphagia, likely due to edema at the surgical site. RECOMMENDATIONS: The patient's dysphagia is slowly improving. She states that she is able to tolerate some liquids, however, it is not sufficient to sustain her without becoming dehydrated. The patient will be continued on intravenous hydration. Rate will be decreased to 100 mL/hr. She is encouraged to continue drinking sips throughout the hour every hour. We will monitor her oral intake. Her laboratories today are reviewed and electrolytes are stable. Hopefully, she can be reached to 4 to 6 ounces per hour by tomorrow and will be discharged home. I had a chance to discuss the patient with nursing staff. I have also discussed the coronary care with the patient's surgeon, Dr. Jovan Bergman. Lam Cruz M.D. DR: KAELYN JOB#: [id number] CC:
[2016-08-05 04:00] VITALS: BP 119/82
[2016-08-05] MEDS: D5 1/2NS 1,000 ML IV SCH ×2 (04:23→14:12)
[2016-08-05 08:00] VITALS: BP 128/78
[2016-08-05] MEDS: Famotidine 20 MG/ 2ML VIAL IVP SCH (08:19)
[2016-08-05] MEDS: Heparin 5000 units/ml inj SUBQ SCH (08:22)
--- NOTE | 2016-08-05 10:33 | Diagnostic Imaging Report ---
Indications: Abdominal pain Technique: Continuous helical CT imaging of the abdomen and pelvis was performed with automatic exposure control following administration of oral and intravenous nonionic iodine contrast, on a Siemens sensation [address] scanner. Axial, coronal, and sagittal images were reconstructed at 5 mm slice thickness. CTDI volume(s): 16 mGy Total DLP: 783 mGy-cm Findings: Comparison: None Oral contrast is passed throughout the gastrointestinal tract to the level of distal descending colon. Entire tract nondilated. Moderate size hiatal hernia is present with suggestion of circumferential mural thickening. Small amount of ingested oral contrast is present within the distal thoracic esophagus and hiatal hernia. Lap band encircles the proximal aspect of the stomach. Mural thickening in this segment not excludable. Multiple small nodular calcifications versus contrast collections at 5 mm in diameter reside within the right lower quadrant adjacent to the medial aspect of the cecum. These may be within the appendix, though the latter is not well delineated. No obvious appendiceal enlargement, adjacent inflammatory stranding or fluid demonstrated. Sigmoid colon unopacified and underdistended, limiting evaluation. No other obvious mural thickening, adjacent stranding, extraluminal gas or fluid collections are identified. 2 cm circumscribed low-attenuation focus with enhancing wall in right adnexal region. Uterus is lobulated with mildly heterogeneous myometrium containing focal calcification. Liver, gallbladder, pancreas, spleen, adrenal glands, kidneys, unopacified ureters and urinary bladder, left adnexal region, vascular structures, retroperitoneum, mesentery, remainder visualized pelvic anatomy unremarkable. Small irregular pleural-based linear densities in left lung base. Right lung base, bilateral adjacent pleural surfaces clear. No focal skeletal abnormality identified. Left main the reservoir and midline anterior abdominal wall. Impression: Apparent mild mural thickening of hiatal hernia above and proximal stomach encircle by lab band. Esophagogastritis must be considered. Minimal oral contrast within distal thoracic esophagus, most of which has passed throughout the gastrointestinal tract, indicating lack of significant obstruction by lap band. Right lower quadrant calcification suggestive of appendicoliths. Appendix itself is not well delineated but not obviously enlarged and without regional acute inflammatory change to suggest acute appendicitis. 2 cm right adnexal cystic structure, likely ovarian in origin physiologic in nature. Consider ultrasound correlation. Uterine myometrial heterogeneity and calcification suggest is not specific for fibroid disease. Consider ultrasound correlation. Graph limited evaluation of sigmoid colon due to technical factors described. Mural pathology not entirely excludable. Consider colonoscopy for further evaluation, as clinically indicated. Left lung base subsegmental atelectasis versus scarring
[2016-08-05 12:00] VITALS: BP 131/86
--- NOTE | 2016-08-06 01:07 | Progress Note ---
DATE: 08/05/2016 INTERVAL HISTORY: The patient is doing well. Her oral intake has now increased. She has been able to tolerate clear liquids more freely. She denies any abdominal pain. The patient denies nausea or vomiting. PHYSICAL EXAMINATION: VITAL SIGNS: Temperature 99.5 degrees, blood pressure is 131/86, pulse 82, respiration 20, and saturation 99% on room air. GENERAL: This is a pleasant female in no acute distress. HEENT: Eyes are PERRLA. Extraocular motion is intact. Conjunctivae not injected. NECK: Neck is supple without lymphadenopathy. LUNGS: Clear to auscultation. No wheezing, rales, or rhonchi. HEART: Regular rate and rhythm. No murmur, rubs or gallops. ABDOMEN: Soft, nontender, and nondistended. Normoactive bowel sounds. EXTREMITIES: Without edema, cyanosis, or clubbing. ASSESSMENT AND PLAN: The patient is a pleasant 46-year-old female, who presents with abdominal pain, nausea, vomiting and is noted to have slippage of the lap band. The patient had laparoscopy and removal of the lap band. She had some edema in the area causing dysphagia and inability to tolerate liquids, which has now resolved. She is tolerating liquids at a rate of 6 ounces/hour. PLAN: 1. The patient will be discharged home. She is to continue on liquids at 6 ounces/hour. She may start protein shakes today. The patient is to follow up with his Dr. , next week. 2. . Lam Cruz M.D. DR: Madelaine JOB#: [id number] CC:
[2016-08-06 14:04] VITALS: BP 124/79
--- NOTE | 2016-08-06 14:04 | 48 Hour Post Anesthesia Eval ---
Post Anesthesia Evaluation Procedure: Laparoscopic removal of lapband, partial gastreectomy Date of Evaluation: Aug 03, 2016 Time of Evaluation: 08:00 Blood Pressure Systolic: 124 0: 79 Pulse Rate: 65 Respiratory Rate: 20 Temperature (Fahrenheit): 98.2 O2 Sat by Pulse Oximetry: 98 Airway: patent Nausea: No Vomiting: No Pain Intensity: 2 Hydration Status: adequate Cardiopulmonary Status: at baseline Mental Status/LOC: patient returned to baseline Post-Anesthesia Complications: 0 Follow-up care needed: N/A - further care as per primary team CELSA MEDRANO M.D. Aug 06, 2016 14:04
== END 2016-08-05 15:00 | disposition home or self-care (01) | DRG 327 ==
LOC: EMR 08:32 → 4W 12:45 → EDBEDREQ 13:04
DX: K95.09 Other complications of gastric band procedure (principal); K31.1 Adult hypertrophic pyloric stenosis; Y83.8 Other surgical procedures as the cause of abnormal reaction of the patient, or of later complication, without mention of misadventure at the time of the procedure; Z96.651 Presence of right artificial knee joint; Z88.6 Allergy status to analgesic agent; R10.9 Unspecified abdominal pain; R11.2 Nausea with vomiting, unspecified; R13.10 Dysphagia, unspecified; K44.9 Diaphragmatic hernia without obstruction or gangrene
CPT/HCPCS: 36415; 74177; 74247; 80048; 80053; 81003; 81025; 83690; 85007; 85025; 94003; 94150; J2250; J2405; J2710; J2765